=== PATIENT | female | born 1970 | race Caucasian/White ===

== ENCOUNTER 2020-09-02 20:58 | Inpatient (IN) | payer MEDICAID ==
[~2020-09-02] VITALS: Ht 170.2 cm; Wt 79.5 kg
[2020-09-02] MEDS ORDERED: LIOT25 PO (21:21)
[2020-09-02] MEDS ORDERED: LEVO100 PO (21:21)
[2020-09-02] MEDS ORDERED: ACETAMINOPHEN 325 MG TABLET PO PRN ×2 (21:45→23:15)
[2020-09-02] MEDS ORDERED: ONDANSETRON HCL 4 MG/2 ML VIAL IVP PRN (21:45)
[2020-09-02 23:00] VITALS: BP 136/76
[2020-09-02] MEDS ORDERED: DiphenhydrAMINE HCL 25 MG CAPSULE PO PRN (23:15)
[2020-09-02] MEDS ORDERED: SODIUM CHLORIDE 0.9% 500 ML IV ONE (23:55)
[2020-09-03] VITALS (30 sets, daily range): BP systolic 106–131; BP diastolic 52–80
[2020-09-03] MEDS ORDERED: INFLUENZA VIRUS VACCINE QVS 2020-21 (6MO+)/PF 60 MCG/0.5 ML SYRINGE IM ONE (01:15)
[2020-09-03] MEDS: LEVOTHYROXINE SODIUM 125 MCG TABLET PO SCH (05:53)
[2020-09-03 06:33] LABS: BASOPHILS % (AUTO) 1.5 % (0.0-2.0); EOSINOPHILS % (AUTO) 5.1 % (1.0-6.0); LYMPHOCYTES % (AUTO) 15.7 % (22.0-44.0); MEAN CORPUSCULAR HEMOGLOBIN 17.9 pg (26.0-34.0); MEAN CORPUSCULAR HGB CONC 29.3 G/dL (31.0-37.0); MEAN CORPUSCULAR VOLUME 61 fL (80-100); MONOCYTES # (AUTO) 0.9 K/uL (0.1-1.0); MONOCYTES % (AUTO) 13.7 % (2.0-9.0); NEUTROPHILS # (AUTO) 4.2 K/uL (1.8-7.7); PLATELET COUNT (AUTO) 242 K/uL (150-450); RED BLOOD CELL COUNT(AUTO) 3.02 MIL/uL (4.00-5.20); RED CELL DISTRIBUTION WIDTH 32.6 % (11.5-14.5)
[2020-09-03 06:44] LABS: HEMATOCRIT 18.5 % (36-46); HEMOGLOBIN 5.4 g/dL (12.0-16.0)
[2020-09-03] MEDS ORDERED: GADOBUTROL 1 MMOL/ML 10 ML VIAL IVP ONE (15:06)
[2020-09-03 15:41] LABS: ANION GAP 7 mmol/L (8-16); CALCIUM, TOTAL 7.9 mg/dL (8.8-10.5); CARBON DIOXIDE 26 mmol/L (22-29); CHLORIDE 109 mmol/L (98-107); CREATININE 0.58 mg/dL (0.60-1.30); GLOMERULAR FILTR. RATE CALC > 60 mL/min (>60); GLUCOSE,RANDOM 94 mg/dL (70-110); POTASSIUM 4.5 mmol/L (3.5-5.1); SODIUM SERUM 142 mmol/L (136-145); UREA NITROGEN, BLOOD 7 mg/dL (7-18)
[2020-09-03] MEDS ORDERED: SODIUM CHLORIDE 0.9% 250 ML IV ONE (20:32)
[2020-09-04 00:15] VITALS: BP 130/63
[2020-09-04 00:43] VITALS: BP 130/63
[2020-09-04 04:46] VITALS: BP 126/72
[2020-09-04] MEDS: LEVOTHYROXINE SODIUM 125 MCG TABLET PO SCH (06:30)
[2020-09-04 07:01] LABS: BASOPHILS % (AUTO) 1.8 % (0.0-2.0); EOSINOPHILS % (AUTO) 4.6 % (1.0-6.0); HEMATOCRIT 23.1 % (36-46); HEMOGLOBIN 7.1 g/dL (12.0-16.0); LYMPHOCYTES # (AUTO) 1.1 K/uL (1.0-4.8); LYMPHOCYTES % (AUTO) 18.2 % (22.0-44.0); MEAN CORPUSCULAR HEMOGLOBIN 20.1 pg (26.0-34.0); MEAN CORPUSCULAR HGB CONC 30.6 G/dL (31.0-37.0); MEAN CORPUSCULAR VOLUME 66 fL (80-100); MONOCYTES # (AUTO) 0.8 K/uL (0.1-1.0); MONOCYTES % (AUTO) 13.2 % (2.0-9.0); NEUTROPHILS # (AUTO) 3.7 K/uL (1.8-7.7); NEUTROPHILS % (AUTO) 62.2 % (40.0-70.0); PLATELET COUNT (AUTO) 233 K/uL (150-450); RED BLOOD CELL COUNT(AUTO) 3.52 MIL/uL (4.00-5.20); RED CELL DISTRIBUTION WIDTH 34.8 % (11.5-14.5)
[2020-09-04 08:11] VITALS: BP 127/66
== END 2020-09-04 13:15 | disposition home or self-care (01) | DRG 532 ==
LOC: EMS 20:59 → 6N 21:57
PROVIDERS: ADMIT Obstetrics & Gynecology; ATTEND Obstetrics & Gynecology
PROC: 30233N1 Transfusion of Nonautologous Red Blood Cells into Peripheral Vein, Percutaneous Approach (ICD-10-PCS; principal; 2020-09-03)
DX: D25.9 Leiomyoma of uterus, unspecified (principal); D62 Acute posthemorrhagic anemia; N83.292 Other ovarian cyst, left side; E03.9 Hypothyroidism, unspecified; H54.62 Unqualified visual loss, left eye, normal vision right eye; Z28.21 Immunization not carried out because of patient refusal; N93.9 Abnormal uterine and vaginal bleeding, unspecified
CPT/HCPCS: 36430; 72197; 74183; 76856; 86850; 86900; 86901; 86923; A9585; J7040; J7050; P9016